=== PATIENT | female | born 1995 | race African-American/Black ===

== ENCOUNTER 2022-07-08 13:13 | Emergency (ER) | payer MEDICAID ==
[~2022-07-08] VITALS: Ht 160 cm; Wt 122.7 kg
[~2022-07-08 13:13] MED LIST: ALBUTEROL
[2022-07-08 13:19] VITALS: BP 121/71
[2022-07-08 13:51] LABS: BASOPHILS % 0.7 % (0.0-2.0); EOSINOPHILS % 1.5 % (0.0-5.0); HEMOGLOBIN. 11.3 g/dL (12.0-16.0); LYMPHOCYTES % 26.8 % (20.0-50.0); MEAN CORPUSCULAR HEMOGLOBIN 28.1 pg (28.0-32.0); MEAN CORPUSCULAR VOLUME 84.5 fL (81.0-99.0); MEAN PLATELET VOLUME 7.7 fl (7.4-10.4); MONOCYTES % 11.2 % (2.0-8.0); NEUTROPHILS % 59.8 % (40.0-76.0); PLATELET 232 x1000/uL (130-400); RED BLOOD CELL COUNT 4.03 mill/uL (4.2-5.4); RED CELL DISTRIBUTION WIDTH 13.2 % (11.6-14.6)
[2022-07-08 14:00] LABS: CHLORIDE 106 mEq/L (98-107)
[2022-07-08] MEDS ORDERED: CLIN-194 MT (16:33)
[2022-07-08] MEDS ORDERED: IBUP-1525 MT (16:33)
[2022-07-08] MEDS ORDERED: TOPUD MT (16:33)
== END 2022-07-08 16:41 | disposition home or self-care (01) ==
LOC: ER 13:13
DX: L03.116 Cellulitis of left lower limb (principal); J45.909 Unspecified asthma, uncomplicated; Z88.0 Allergy status to penicillin
CPT/HCPCS: 36415; 80053; 81025; 85025; 93971; 99284

== ENCOUNTER 2023-03-26 11:50 | Emergency (ER) | payer MEDICAID, OTHER ==
[~2023-03-26] VITALS: Ht 170.2 cm; Wt 115.0 kg
[~2023-03-26 11:50] MED LIST changes: +CLIN-194 MT; +IBUP-1525 MT; +TOPUD MT
[2023-03-26 11:56] VITALS: BP 142/80; PULSE 90; RESP 20; TEMP 98.4; O2SAT 100
[2023-03-26] MEDS ORDERED: IBUPROFEN 800MG TABLET PO ONE (12:15)
[2023-03-26] MEDS ORDERED: ACET-2708 MT (12:22)
[2023-03-26] MEDS ORDERED: IBUPROFEN 400MG TABLET PO NR (12:30)
== END 2023-03-26 12:02 | disposition home or self-care (01) ==
LOC: ER 11:50
DX: M25.572 Pain in left ankle and joints of left foot (principal); M25.561 Pain in right knee; J45.909 Unspecified asthma, uncomplicated; Z88.0 Allergy status to penicillin
CPT/HCPCS: 73560; 73610; 99284

== ENCOUNTER 2024-05-20 16:05 | Emergency (ER) | payer SELFPAY ==
[~2024-05-20] VITALS: Ht 160 cm; Wt 122.4 kg
[~2024-05-20 16:05] MED LIST changes: +ACET-2708 MT
[2024-05-20 16:15] VITALS: O2SAT 97
[2024-05-20] MEDS ORDERED: NAPR-681 MT (20:32)
[2024-05-20] MEDS ORDERED: TRAM50TA3 MT (20:32)
[2024-05-20] MEDS: KETOROLAC 30MG/ML VIAL IM STA (20:59)
[2024-05-20 21:10] VITALS: BP 129/83; PULSE 88; RESP 18; TEMP 36.7; O2SAT 98
== END 2024-05-20 21:12 | disposition home or self-care (01) ==
LOC: ER 16:05
DX: S93.402A Sprain of unspecified ligament of left ankle, initial encounter (principal); I10 Essential (primary) hypertension; J45.909 Unspecified asthma, uncomplicated; Z88.0 Allergy status to penicillin; Z79.899 Other long term (current) drug therapy; X58.XXXA Exposure to other specified factors, initial encounter; Y92.009 Unspecified place in unspecified non-institutional (private) residence as the place of occurrence of the external cause; Y93.01 Activity, walking, marching and hiking; Y99.8 Other external cause status
CPT/HCPCS: 81025; 73620; 96372; 99283; J1885; Z7610 ×2